=== PATIENT | female | born 1955 | race Caucasian/White ===

== ENCOUNTER 2024-03-06 12:53 | Emergency (ER) | payer OTHER, MEDICARE ==
[~2024-03-06 12:53] MED LIST: Iopamidol 370 76% 100 ML VIAL ONE
[2024-03-06 13:55] LABS: #Basophils 0.1 thou/uL (0.0-0.2); #Lymphocytes 1.7 thou/uL (1.20-3.40); #Monocytes 0.5 thou/uL (0.11-0.59); #Neutrophils 4.5 thou/uL (1.40-6.50); %Basophils 0.8 % (0.0-1.0); %Eosinophils 0.1 % (0.0-10.0); %Lymphocytes 24.8 % (21.0-51.0); %Monocytes 7.4 % (0.0-10.0); Hematocrit 30.4 % (36.0-47.0); Hemoglobin 8.7 g/dL (12.0-16.0); Mean Corpuscular HGB CONC 28.5 g/dL (32.0-36.0); Mean Corpuscular Hemoglobin 22.4 pg (27.0-31.0); Mean Corpuscular Volume 78.5 fl (78.0-98.0); Mean Platelet Volume 9.5 fL (7.4-10.4); Platelet Count 119 10x3/uL (130-400); RBC Distribution Width 20.4 % (11.5-14.5); Red Blood Cell (RBC) Count 3.87 mill/uL (4.20-5.40); White Blood Cell (WBC) Count 6.7 10x3/uL (4.8-10.8)
[2024-03-06 13:56] LABS: Anisocytosis SLIGHT = 6-15 cells (100X) (0-5/hpf); Hypochromia SLIGHT = 6-15 cells (100X) (0-5/hpf)
[2024-03-06 13:57] LABS: Anion Gap 15 mmol/L (10-20); BUN (Urea Nitrogen) 27 mg/dL (9.8-20.1); Calc. Creatinine Clearance 0 mL/min (70-130); Calcium 8.3 mg/dL (7.8-10.44); Carbon Dioxide 18 mmol/L (23-31); Chloride 107 mmol/L (98-107); Estimated GFR 36; Glucose 134 mg/dL (80-115); Platelet Adequacy Comment Appears Decreased; Potassium 4.3 mmol/L (3.5-5.1); Sodium 136 mmol/L (136-145)
[2024-03-06] MEDS ORDERED: Piperacillin/Tazobactam 3.375 GM VIAL ONE (14:07)
[2024-03-06] MEDS ORDERED: Vancomycin HCl 500 MG VIAL ONE (15:28)
[2024-03-06 15:55] LABS: Bacteria/HPF 1+ HPF (None Seen); Bilirubin Negative (Negative); Blood, Urine Negative (Negative); CAUTI Indications for Culture Pelvic or flank pain; Clarity Hazy (Clear); Glucose, Urine (Dipstick) Negative (Negative); Ketone, Urine Negative (Negative); Leukocyte Negative (Negative); Nitrite Positive (Negative); Protein, Urine (Dipstick) Negative (Neg-Trace); RBC/HPF None Seen HPF (0-3); Urobilinogen 0.2 mg/dL (Less than 2); WBC/HPF None Seen HPF (0-3); pH, Urine 8.5 (5.0-9.0)
[2024-03-06 15:56] LABS: Urine Culture Reflex No No
[2024-03-06] MEDS ORDERED: Albumin 25% 100 ML ONE (16:44)
== END 2024-03-06 18:56 | disposition short-term general hospital (02) ==
LOC: MADERS 12:53
DX: T81.41XA Infection following a procedure, superficial incisional surgical site, initial encounter (principal); S37.009A Unspecified injury of unspecified kidney, initial encounter; E78.5 Hyperlipidemia, unspecified; I10 Essential (primary) hypertension; E11.9 Type 2 diabetes mellitus without complications; Z79.899 Other long term (current) drug therapy
CPT/HCPCS: 36415; 71045; 72193; 80048; 81001; 83605; 84484; 85025; 86140; 87070; 87077; 87186; 87205; 93005; 96365; 96367; J2543; J3370; P9047; Q9967

== ENCOUNTER 2024-03-17 19:33 | Inpatient (IN) | payer OTHER, MEDICAID ==
[2024-03-17] MEDS ORDERED: Ibuprofen 400 MG TAB PO PRN (20:12)
[2024-03-17] MEDS ORDERED: Ipratropium/Albuterol 3 ML NEB NEB PRN (20:12)
[2024-03-17] MEDS ORDERED: Acetaminophen 325 MG TAB PO PRN (20:12)
[2024-03-17] MEDS ORDERED: Cefepime 2 GM VIAL IVPB SCH (21:00)
[2024-03-17] MEDS: Cefepime 2 GM in Sodium Chloride 0.9% 100 ML IVPB SCH (21:21)
[2024-03-17] MEDS: Rosuvastatin 10 MG TAB PO SCH (21:22)
[2024-03-17] MEDS: Pantoprazole DR 40 MG TAB PO SCH (21:22)
[2024-03-17] MEDS: Hydroxychloroquine Sulfate 200 MG TAB PO SCH (21:22)
[2024-03-17] MEDS: Ranolazine ER 500 MG TAB PO SCH (21:22)
[2024-03-18] MEDS: traMADol HCl 50 MG TAB PO PRN (05:51)
[2024-03-18] MEDS: Acetaminophen 325 MG TAB PO PRN (05:52)
[2024-03-18] MEDS: Aspirin Chewable 81 MG TAB PO SCH (08:52)
[2024-03-18] MEDS: Saccharomyces boulardii 250 MG CAP PO SCH (08:52)
[2024-03-18] MEDS: Ezetimibe 10 MG TAB PO SCH (08:52)
[2024-03-18] MEDS: Empagliflozin 10 MG TAB PO SCH (08:53)
[2024-03-18] MEDS: DULoxetine 20 MG CAP PO SCH (08:53)
[2024-03-18] MEDS: Prasugrel 10 MG TAB PO SCH (08:53)
[2024-03-18] MEDS: Furosemide 20 MG TAB PO SCH (08:53)
[2024-03-18] MEDS: Spironolactone 25 MG TAB PO SCH (08:54)
[2024-03-18] MEDS: Cyclobenzaprine 10 MG TAB PO PRN (21:18)
[2024-03-19 06:39] LABS: Hematocrit 33.2 % (36.0-47.0); Hemoglobin 9.6 g/dL (12.0-16.0); Mean Corpuscular HGB CONC 29.1 g/dL (32.0-36.0); Mean Corpuscular Hemoglobin 24.4 pg (27.0-31.0); Mean Corpuscular Volume 83.8 fl (78.0-98.0); Mean Platelet Volume 9.3 fL (7.4-10.4); Platelet Count 109 10x3/uL (130-400); RBC Distribution Width 19.7 % (11.5-14.5); Red Blood Cell (RBC) Count 3.96 mill/uL (4.20-5.40)
[2024-03-19 06:42] LABS: Anion Gap 13 mmol/L (10-20); BUN (Urea Nitrogen) 15 mg/dL (9.8-20.1); Calc. Creatinine Clearance 70 mL/min (70-130); Calcium 7.7 mg/dL (7.8-10.44); Carbon Dioxide 22 mmol/L (23-31); Chloride 102 mmol/L (98-107); Estimated GFR 79; Glucose 81 mg/dL (80-115); Potassium 3.5 mmol/L (3.5-5.1); Sodium 133 mmol/L (136-145)
[2024-03-19 06:47] LABS: Manual Diff?? YES
[2024-03-19 06:48] LABS: Anisocytosis SLIGHT = 6-15 cells (100X) (0-5/hpf); Band 10 % (5-11); Lymphocytes 52 % (21-51); MDiff Complete? YES; Monocytes 8 % (0-10); Neutrophil 30 % (42-75); Platelet Adequacy Comment Appears Adequate
[2024-03-20] MEDS: Ibuprofen 400 MG TAB PO PRN (00:27)
[2024-03-21] MEDS: Loperamide HCl 2 MG CAP PO PRN (11:45)
[2024-03-21] MEDS: Betamethasone 0.1% Cream 15 GM TUBE TOP SCH (21:13)
[2024-03-21] MEDS: DULoxetine 20 MG CAP PO SCH (21:13)
[2024-03-23] MEDS: Betamethasone 0.1% Cream 15 GM TUBE TOP PRN (08:35)
[2024-03-23] MEDS: Ondansetron ODT 4 MG TAB PO PRN (11:28)
[2024-03-24] MEDS: Ferrous Gluconate 324 MG TAB PO SCH (08:04)
[2024-03-26 06:00] LABS: ALT (SGPT) 16 U/L (8-55); AST (SGOT) 27 U/L (5-34); Albumin 2.7 g/dL (3.4-4.8); Alkaline Phosphatase 93 U/L (40-110); Anion Gap 12 mmol/L (10-20); BUN (Urea Nitrogen) 13 mg/dL (9.8-20.1); Bilirubin, Total 0.7 mg/dL (0.2-1.2); Calc. Creatinine Clearance 70 mL/min (70-130); Calcium 7.9 mg/dL (7.8-10.44); Carbon Dioxide 23 mmol/L (23-31); Chloride 106 mmol/L (98-107); Estimated GFR 78; Globulin 2.4 g/dL (2.4-3.5); Glucose 114 mg/dL (80-115); Potassium 3.2 mmol/L (3.5-5.1); Protein, Total 5.1 g/dL (5.8-8.1); Sodium 138 mmol/L (136-145)
[2024-03-26 06:02] LABS: Eosinophils 1 % (0-10); Hematocrit 35.5 % (36.0-47.0); Lymphocytes 58 % (21-51); MDiff Complete? YES; Mean Corpuscular HGB CONC 28.1 g/dL (32.0-36.0); Mean Corpuscular Hemoglobin 24.2 pg (27.0-31.0); Mean Corpuscular Volume 86.4 fl (78.0-98.0); Mean Platelet Volume 7.5 fL (7.4-10.4); Monocytes 10 % (0-10); Neutrophil 31 % (42-75); Platelet Adequacy Comment Appears Decreased; Platelet Count 97 10x3/uL (130-400); RBC Distribution Width 21.3 % (11.5-14.5); Red Blood Cell (RBC) Count 4.11 mill/uL (4.20-5.40); White Blood Cell (WBC) Count 6.2 10x3/uL (4.8-10.8)
[2024-03-26] MEDS: Potassium Chloride 20 MEQ TAB PO SCH (13:39)
[2024-03-27 06:27] LABS: Anion Gap 13 mmol/L (10-20); BUN (Urea Nitrogen) 12 mg/dL (9.8-20.1); Calc. Creatinine Clearance 74 mL/min (70-130); Carbon Dioxide 23 mmol/L (23-31); Chloride 107 mmol/L (98-107); Estimated GFR 84; Glucose 78 mg/dL (80-115); Potassium 3.5 mmol/L (3.5-5.1); Sodium 139 mmol/L (136-145)
[2024-03-27 06:54] LABS: Platelet Count 120 10x3/uL (130-400)
[2024-03-27] MEDS: Potassium Chloride 20 MEQ TAB PO SCH (09:07)
[2024-04-02 06:00] LABS: Band 1 % (5-11); Eosinophils 1 % (0-10); Hematocrit 35.5 % (36.0-47.0); Hemoglobin 10.3 g/dL (12.0-16.0); Lymphocytes 57 % (21-51); MDiff Complete? YES; Mean Corpuscular Volume 86.1 fl (78.0-98.0); Mean Platelet Volume 8.6 fL (7.4-10.4); Monocytes 12 % (0-10); Neutrophil 29 % (42-75); Platelet Count 109 10x3/uL (130-400); RBC Distribution Width 20.5 % (11.5-14.5); Red Blood Cell (RBC) Count 4.12 mill/uL (4.20-5.40); White Blood Cell (WBC) Count 4.8 10x3/uL (4.8-10.8)
[2024-04-02 06:06] LABS: ALT (SGPT) 12 U/L (8-55); AST (SGOT) 26 U/L (5-34); Albumin 2.6 g/dL (3.4-4.8); Alkaline Phosphatase 93 U/L (40-110); Anion Gap 11 mmol/L (10-20); BUN (Urea Nitrogen) 12 mg/dL (9.8-20.1); Bilirubin, Total 0.7 mg/dL (0.2-1.2); Calc. Creatinine Clearance 63 mL/min (70-130); Calcium 8.1 mg/dL (7.8-10.44); Carbon Dioxide 26 mmol/L (23-31); Chloride 107 mmol/L (98-107); Estimated GFR 73; Globulin 2.5 g/dL (2.4-3.5); Glucose 74 mg/dL (80-115); Potassium 3.8 mmol/L (3.5-5.1); Protein, Total 5.1 g/dL (5.8-8.1); Sodium 140 mmol/L (136-145)
[2024-04-05] MEDS: Cefepime 2 GM in Sodium Chloride 0.9% 100 ML IVPB SCH (09:45)
[2024-04-05] MEDS ORDERED: traMADol HCl 50 MG TAB PO PRN (11:33)
[2024-04-05] MEDS: Hydroxychloroquine Sulfate 200 MG TAB PO SCH (20:06)
[2024-04-09 05:18] LABS: Anisocytosis SLIGHT = 6-15 cells (100X) (0-5/hpf); Band 1 % (5-11); Eosinophils 3 % (0-10); Hematocrit 38.4 % (36.0-47.0); Hemoglobin 11.5 g/dL (12.0-16.0); Lymphocytes 58 % (21-51); MDiff Complete? YES; Mean Corpuscular HGB CONC 29.9 g/dL (32.0-36.0); Mean Corpuscular Hemoglobin 25.5 pg (27.0-31.0); Mean Corpuscular Volume 85.4 fl (78.0-98.0); Mean Platelet Volume 8.6 fL (7.4-10.4); Monocytes 8 % (0-10); Neutrophil 30 % (42-75); Platelet Adequacy Comment Appears Decreased; Platelet Count 104 10x3/uL (130-400); RBC Distribution Width 20.2 % (11.5-14.5); White Blood Cell (WBC) Count 6.2 10x3/uL (4.8-10.8)
[2024-04-09 05:29] LABS: ALT (SGPT) 14 U/L (8-55); AST (SGOT) 27 U/L (5-34); Alkaline Phosphatase 99 U/L (40-110); Anion Gap 13 mmol/L (10-20); BUN (Urea Nitrogen) 11 mg/dL (9.8-20.1); Bilirubin, Total 0.7 mg/dL (0.2-1.2); Calc. Creatinine Clearance 55 mL/min (70-130); Calcium 8.5 mg/dL (7.8-10.44); Carbon Dioxide 22 mmol/L (23-31); Chloride 109 mmol/L (98-107); Estimated GFR 66; Globulin 2.9 g/dL (2.4-3.5); Glucose 85 mg/dL (80-115); Potassium 3.9 mmol/L (3.5-5.1); Protein, Total 5.9 g/dL (5.8-8.1); Sodium 140 mmol/L (136-145)
[2024-04-12] MEDS: Proctozone-HC 30 GM TUBE TOP SCH (08:31)
[2024-04-16 05:08] LABS: Band 1 % (5-11); Eosinophils 2 % (0-10); Hematocrit 37.8 % (36.0-47.0); Hemoglobin 11.3 g/dL (12.0-16.0); Lymphocytes 56 % (21-51); MDiff Complete? YES; Mean Corpuscular Hemoglobin 25.9 pg (27.0-31.0); Mean Corpuscular Volume 86.5 fl (78.0-98.0); Mean Platelet Volume 10.2 fL (7.4-10.4); Monocytes 8 % (0-10); Neutrophil 33 % (42-75); Platelet Count 96 10x3/uL (130-400); RBC Distribution Width 19.6 % (11.5-14.5); Red Blood Cell (RBC) Count 4.38 mill/uL (4.20-5.40); White Blood Cell (WBC) Count 5.7 10x3/uL (4.8-10.8)
[2024-04-16 05:26] LABS: ALT (SGPT) 12 U/L (8-55); AST (SGOT) 28 U/L (5-34); Alkaline Phosphatase 81 U/L (40-110); Anion Gap 14 mmol/L (10-20); BUN (Urea Nitrogen) 15 mg/dL (9.8-20.1); Bilirubin, Total 0.6 mg/dL (0.2-1.2); Calc. Creatinine Clearance 66 mL/min (70-130); Calcium 8.5 mg/dL (7.8-10.44); Carbon Dioxide 20 mmol/L (23-31); Chloride 107 mmol/L (98-107); Estimated GFR 80; Globulin 2.7 g/dL (2.4-3.5); Glucose 79 mg/dL (80-115); Potassium 4.1 mmol/L (3.5-5.1); Protein, Total 5.7 g/dL (5.8-8.1); Sodium 137 mmol/L (136-145)
[2024-04-16 14:35] VITALS: BMI 22.8
[2024-04-16] MEDS: traMADol HCl 50 MG TAB PO PRN (17:14)
[2024-04-17] MEDS: Hydroxychloroquine Sulfate 200 MG TAB PO SCH ×2 (10:46→20:16)
[2024-04-17] MEDS: Leflunomide 10 mg Tablet PO SCH (10:48)
[2024-04-17] MEDS ORDERED: traMADol HCl 50 MG TAB PO PRN (17:17)
[2024-04-17] MEDS: Simethicone Chewable 80 MG TAB PO PRN (17:22)
[2024-04-17] MEDS ORDERED: Hydroxychloroquine Sulfate 200 MG TAB PO SCH (21:00)
[2024-04-18] MEDS: Leflunomide 10 mg Tablet PO SCH (08:18)
[2024-04-18] MEDS ORDERED: Leflunomide 10 mg Tablet PO SCH (10:10)
[2024-04-19 05:19] VITALS: BMI 22.6
[2024-04-21 07:22] VITALS: BP 117/76; TEMP 97.9
== END 2024-04-21 09:38 | disposition home or self-care (01) | DRG 949 ==
LOC: MADMS 19:33
PROVIDERS: ADMIT Family Medicine; ATTEND Family Medicine
DX: T84.51XD Infection and inflammatory reaction due to internal right hip prosthesis, subsequent encounter (principal); I50.43 Acute on chronic combined systolic (congestive) and diastolic (congestive) heart failure; J96.01 Acute respiratory failure with hypoxia; D62 Acute posthemorrhagic anemia; E87.1 Hypo-osmolality and hyponatremia; D69.6 Thrombocytopenia, unspecified; Z66 Do not resuscitate; I11.0 Hypertensive heart disease with heart failure; J44.9 Chronic obstructive pulmonary disease, unspecified; I25.10 Atherosclerotic heart disease of native coronary artery without angina pectoris; D50.9 Iron deficiency anemia, unspecified; R53.81 Other malaise; K21.9 Gastro-esophageal reflux disease without esophagitis; M62.838 Other muscle spasm; R19.7 Diarrhea, unspecified; M06.9 Rheumatoid arthritis, unspecified; B96.5 Pseudomonas (aeruginosa) (mallei) (pseudomallei) as the cause of diseases classified elsewhere; I25.5 Ischemic cardiomyopathy; I73.9 Peripheral vascular disease, unspecified; Z96.641 Presence of right artificial hip joint; Z88.5 Allergy status to narcotic agent; Z79.899 Other long term (current) drug therapy; Z79.82 Long term (current) use of aspirin; Z95.1 Presence of aortocoronary bypass graft; Z87.891 Personal history of nicotine dependence; Z98.890 Other specified postprocedural states; Z90.49 Acquired absence of other specified parts of digestive tract; Z90.710 Acquired absence of both cervix and uterus; Z99.81 Dependence on supplemental oxygen; Z91.81 History of falling
CPT/HCPCS: 80048; 80053; 85025; 85049; 86140; J0692; J3490; Q0162

== ENCOUNTER 2024-05-13 15:10 | Emergency (ER) | payer OTHER, MEDICAID ==
[2024-05-13 17:09] LABS: #Basophils 0.1 thou/uL (0.0-0.2); #Monocytes 0.5 thou/uL (0.11-0.59); #Neutrophils 4.2 thou/uL (1.40-6.50); %Basophils 1.7 % (0.0-1.0); %Eosinophils 0.3 % (0.0-10.0); %Lymphocytes 38.3 % (21.0-51.0); %Neutrophils 53.7 % (42.0-75.0); Hematocrit 36.5 % (36.0-47.0); Hemoglobin 10.7 g/dL (12.0-16.0); Mean Corpuscular HGB CONC 29.3 g/dL (32.0-36.0); Mean Corpuscular Hemoglobin 25.6 pg (27.0-31.0); Mean Corpuscular Volume 87.5 fl (78.0-98.0); Mean Platelet Volume 8.5 fL (7.4-10.4); Platelet Count 199 10x3/uL (130-400); RBC Distribution Width 17.1 % (11.5-14.5); Red Blood Cell (RBC) Count 4.17 mill/uL (4.20-5.40); White Blood Cell (WBC) Count 7.7 10x3/uL (4.8-10.8)
[2024-05-13 17:19] LABS: ALT (SGPT) Less than 7 U/L (8-55); AST (SGOT) 10 U/L (5-34); Albumin 2.5 g/dL (3.4-4.8); Alkaline Phosphatase 87 U/L (40-110); Anion Gap 14 mmol/L (10-20); BUN (Urea Nitrogen) 14 mg/dL (9.8-20.1); Bilirubin, Total 0.5 mg/dL (0.2-1.2); Calc. Creatinine Clearance 0 mL/min (70-130); Carbon Dioxide 24 mmol/L (23-31); Chloride 106 mmol/L (98-107); Estimated GFR 64; Globulin 3.8 g/dL (2.4-3.5); Glucose 75 mg/dL (80-115); Protein, Total 6.3 g/dL (5.8-8.1); Sodium 139 mmol/L (136-145)
[2024-05-13] MEDS ORDERED: Sodium Chloride 0.9% 100 ML ONE (18:07)
[2024-05-13] MEDS ORDERED: Cefepime 2 GM VIAL ONE (18:07)
== END 2024-05-13 20:11 | disposition home or self-care (01) ==
LOC: MADERS 15:10
DX: T81.49XA Infection following a procedure, other surgical site, initial encounter (principal); E11.9 Type 2 diabetes mellitus without complications; I11.0 Hypertensive heart disease with heart failure; I50.9 Heart failure, unspecified
CPT/HCPCS: 36415; 72192; 80053; 83605; 85025; 96365; J0692; J3490

== ENCOUNTER 2024-05-25 19:04 | Inpatient (IN) | payer OTHER, MEDICAID ==
[2024-05-25] MEDS: Hydroxychloroquine Sulfate 200 MG TAB PO SCH (21:44)
[2024-05-25] MEDS: DULoxetine 20 MG CAP PO SCH (21:45)
[2024-05-25] MEDS: Pantoprazole DR 40 MG TAB PO SCH (21:45)
[2024-05-25] MEDS: Rosuvastatin 10 MG TAB PO SCH (21:45)
[2024-05-25 22:04] VITALS: BMI 23.2
[2024-05-26] MEDS: DULoxetine 20 MG CAP PO SCH (08:20)
[2024-05-26] MEDS: Prasugrel 10 MG TAB PO SCH (08:20)
[2024-05-26] MEDS: Enoxaparin 40 MG (0.4 mL) SYRINGE SC SCH (08:20)
[2024-05-26] MEDS: Leflunomide 10 mg Tablet PO SCH (08:21)
[2024-05-26] MEDS: Hydroxychloroquine Sulfate 200 MG TAB PO SCH (08:21)
[2024-05-26] MEDS: Magnesium Oxide 400 MG TAB PO SCH (08:21)
[2024-05-26] MEDS: Cyclobenzaprine 10 MG TAB PO PRN (08:21)
[2024-05-26] MEDS: Ranolazine ER 500 MG TAB PO SCH (08:21)
[2024-05-26] MEDS: Empagliflozin 10 MG TAB PO SCH (08:21)
[2024-05-26] MEDS: Bisoprolol Fumarate 5 MG TAB PO SCH (08:21)
[2024-05-26] MEDS: Ezetimibe 10 MG TAB PO SCH (08:21)
[2024-05-26] MEDS ORDERED: Lantiseptic Ointment 130 GM JAR TOP PRN (14:42)
[2024-05-26] MEDS: Non-Formulary Item 1 EACH (Ibandronate Sodium [Ibandronate Sodium] 150 MG Tablet) PO SCH (17:10)
[2024-05-26] MEDS: Meloxicam 7.5 MG TAB PO SCH (19:08)
[2024-05-26] MEDS: Lidocaine 4% Patch TD SCH (19:59)
[2024-05-26] MEDS: Lantiseptic Ointment 130 GM JAR TOP SCH (20:00)
[2024-05-26] MEDS: Pantoprazole DR 40 MG TAB PO SCH (20:00)
[2024-05-26] MEDS: Rosuvastatin 10 MG TAB PO SCH (20:00)
[2024-05-27] MEDS: Meloxicam 7.5 MG TAB PO SCH (08:15)
[2024-05-27] MEDS: Acetaminophen 325 MG TAB PO PRN (08:16)
[2024-05-27] MEDS: Metamucil PACK PO SCH (08:16)
[2024-05-27] MEDS: Famotidine 20 MG TAB PO SCH (08:17)
[2024-05-27] MEDS: Furosemide 20 MG TAB PO SCH (08:18)
[2024-05-27] MEDS: Transdermal Patch Removal TOP SCH (08:19)
[2024-05-27] MEDS ORDERED: Lidocaine 4% Patch TD SCH (21:00)
[2024-05-27] MEDS: Cyclobenzaprine 10 MG TAB PO PRN (21:20)
[2024-05-31] MEDS: Ipratropium/Albuterol 3 ML NEB NEB PRN (13:48)
[2024-06-01 07:08] LABS: Anion Gap 14 mmol/L (10-20); BUN (Urea Nitrogen) 17 mg/dL (9.8-20.1); Calc. Creatinine Clearance 63 mL/min (70-130); Calcium 8.6 mg/dL (7.8-10.44); Carbon Dioxide 17 mmol/L (23-31); Chloride 110 mmol/L (98-107); Estimated GFR 80; Glucose 89 mg/dL (83-110); Potassium 4.7 mmol/L (3.5-5.1); Sodium 136 mmol/L (136-145)
[2024-06-01] MEDS: Ranolazine ER 500 MG TAB PO SCH (21:31)
[2024-06-01] MEDS: Loperamide HCl 2 MG CAP PO PRN (23:32)
[2024-06-04] MEDS: Bisoprolol Fumarate 5 MG TAB PO SCH (09:50)
[2024-06-08 11:12] VITALS: BMI 23.3
[2024-06-11 07:12] VITALS: BP 112/61; TEMP 97.6
== END 2024-06-11 09:48 | disposition home or self-care (01) | DRG 560 ==
LOC: MADMS 20:29
PROVIDERS: ADMIT Family Medicine; ATTEND Family Medicine
DX: S32.9XXD Fracture of unspecified parts of lumbosacral spine and pelvis, subsequent encounter for fracture with routine healing (principal); I50.42 Chronic combined systolic (congestive) and diastolic (congestive) heart failure; R53.81 Other malaise; S32.019D Unspecified fracture of first lumbar vertebra, subsequent encounter for fracture with routine healing; S22.089G Unspecified fracture of T11-T12 vertebra, subsequent encounter for fracture with delayed healing; I11.0 Hypertensive heart disease with heart failure; I25.10 Atherosclerotic heart disease of native coronary artery without angina pectoris; S32.10XD Unspecified fracture of sacrum, subsequent encounter for fracture with routine healing; M06.9 Rheumatoid arthritis, unspecified; D50.9 Iron deficiency anemia, unspecified; J44.9 Chronic obstructive pulmonary disease, unspecified; K21.9 Gastro-esophageal reflux disease without esophagitis; I73.9 Peripheral vascular disease, unspecified; I25.5 Ischemic cardiomyopathy; R29.6 Repeated falls; G62.9 Polyneuropathy, unspecified; D63.8 Anemia in other chronic diseases classified elsewhere; Z96.641 Presence of right artificial hip joint; I25.2 Old myocardial infarction; Z88.5 Allergy status to narcotic agent; Z79.899 Other long term (current) drug therapy; Z95.1 Presence of aortocoronary bypass graft; Z95.810 Presence of automatic (implantable) cardiac defibrillator; Z90.712 Acquired absence of cervix with remaining uterus; Z98.890 Other specified postprocedural states; Z87.891 Personal history of nicotine dependence
CPT/HCPCS: 36415; 36416; 80048; 94640; J1650; J7620

== ENCOUNTER 2024-08-14 18:28 | Inpatient (IN) | payer OTHER, MEDICAID ==
[2024-08-14 19:38] VITALS: BMI 23.3
[2024-08-14] MEDS ORDERED: Ipratropium/Albuterol 3 ML NEB NEB PRN (20:25)
[2024-08-14] MEDS: Lantiseptic Ointment 130 GM JAR TOP SCH (20:53)
[2024-08-14] MEDS: DULoxetine 20 MG CAP PO SCH (20:54)
[2024-08-14] MEDS: Pantoprazole DR 40 MG TAB PO SCH (20:54)
[2024-08-14] MEDS: Furosemide 20 MG TAB PO SCH (20:54)
[2024-08-14] MEDS: Hydroxychloroquine Sulfate 200 MG TAB PO SCH (20:54)
[2024-08-14] MEDS: Rosuvastatin 10 MG TAB PO SCH (20:54)
[2024-08-14] MEDS: Ranolazine ER 500 MG TAB PO SCH (20:54)
[2024-08-14] MEDS: Cyclobenzaprine 10 MG TAB PO PRN (21:03)
[2024-08-15] MEDS: Furosemide 20 MG TAB PO SCH ×2 (05:44→16:55)
[2024-08-15] MEDS: Non-Formulary Item 1 EACH (Ibandronate Sodium [Ibandronate Sodium] 150 MG Tablet) PO SCH (06:49)
[2024-08-15] MEDS: Leflunomide 10 mg Tablet PO SCH (08:39)
[2024-08-15] MEDS: Prasugrel 10 MG TAB PO SCH (08:39)
[2024-08-15] MEDS: Ezetimibe 10 MG TAB PO SCH (08:39)
[2024-08-15] MEDS: Aspirin 81 mg Enteric Coated Tablet PO SCH (08:39)
[2024-08-15] MEDS: Magnesium Oxide 400 MG TAB PO SCH (08:39)
[2024-08-15] MEDS: Empagliflozin 10 MG TAB PO SCH (08:39)
[2024-08-15] MEDS: Enoxaparin 40 MG (0.4 mL) SYRINGE SC SCH (08:40)
[2024-08-16] MEDS: Furosemide 20 MG TAB PO SCH (09:16)
[2024-08-16] MEDS: Enoxaparin 30 MG (0.3 mL) SYRINGE SC SCH (09:17)
[2024-08-16] MEDS ORDERED: Furosemide 20 MG TAB PO SCH (15:30)
[2024-08-16] MEDS: Acetaminophen 325 MG TAB PO PRN (19:12)
[2024-08-17 13:15] VITALS: BMI 23.3
[2024-08-17] MEDS: Saccharomyces boulardii 250 MG CAP PO SCH (20:07)
[2024-08-20 06:28] LABS: #Basophils 0.1 thou/uL (0.0-0.2); #Eosinophils 0.1 thou/uL (0.0-0.7); #Lymphocytes 1.9 thou/uL (1.20-3.40); #Monocytes 0.4 thou/uL (0.11-0.59); #Neutrophils 1.8 thou/uL (1.40-6.50); %Basophils 2.1 % (0.0-1.0); %Eosinophils 2.7 % (0.0-10.0); %Lymphocytes 43.2 % (21.0-51.0); %Monocytes 9.2 % (0.0-10.0); %Neutrophils 42.9 % (42.0-75.0); Hematocrit 34.1 % (36.0-47.0); Mean Corpuscular HGB CONC 29.4 g/dL (32.0-36.0); Mean Corpuscular Hemoglobin 23.5 pg (27.0-31.0); Mean Corpuscular Volume 79.9 fl (78.0-98.0); Mean Platelet Volume 7.2 fL (7.4-10.4); Platelet Count 176 10x3/uL (130-400); RBC Distribution Width 17.8 % (11.5-14.5); Red Blood Cell (RBC) Count 4.27 mill/uL (4.20-5.40); White Blood Cell (WBC) Count 4.3 10x3/uL (4.8-10.8)
[2024-08-20 06:37] LABS: ALT (SGPT) 9 U/L (8-55); AST (SGOT) 11 U/L (5-34); Albumin 2.5 g/dL (3.4-4.8); Alkaline Phosphatase 106 U/L (40-110); Anion Gap 13 mmol/L (10-20); BUN (Urea Nitrogen) 15 mg/dL (9.8-20.1); Bilirubin, Total 0.4 mg/dL (0.2-1.2); Calc. Creatinine Clearance 63 mL/min (70-130); Calcium 8.6 mg/dL (7.8-10.44); Carbon Dioxide 22 mmol/L (23-31); Chloride 109 mmol/L (98-107); Estimated GFR 79; Glucose 81 mg/dL (83-110); Lipase 15 U/L (8-78); Potassium 4.1 mmol/L (3.5-5.1); Protein, Total 6.5 g/dL (5.8-8.1); Sodium 140 mmol/L (136-145)
[2024-08-20 07:49] LABS: Bilirubin Negative (Negative); Blood, Urine Negative (Negative); Clarity Slightly Cloudy (Clear); Glucose, Urine (Dipstick) 250 mg/dL (Negative); Ketone, Urine Negative (Negative); Leukocyte Trace (Negative); Nitrite Negative (Negative); Protein, Urine (Dipstick) Negative (Neg-Trace); Specific Gravity, Urine 1.015 (1.005-1.030); Urobilinogen 0.2 mg/dL (Less than 2)
[2024-08-20 08:00] LABS: CAUTI Indications for Culture Pelvic or flank pain; RBC/HPF 0-3 HPF (0-3)
[2024-08-20 08:01] LABS: Bacteria/HPF Rare-Few HPF (None Seen); Yeast-Budding 2+ HPF (None Seen)
[2024-08-20 08:03] LABS: Urine Culture Reflex No No
[2024-08-20] MEDS ORDERED: Iopamidol 370 76% 100 ML VIAL ONE (09:00)
[2024-08-20] MEDS: Enoxaparin 40 MG (0.4 mL) SYRINGE SC SCH (09:53)
[2024-08-21] MEDS ORDERED: Nitroglycerin 0.4 MG TAB (25 Tab Bottle) SL PRN (21:13)
[2024-08-21] MEDS: Nitroglycerin 0.4 MG TAB (25 Tab Bottle) SL SCH (21:15)
[2024-08-21 21:50] LABS: Troponin I 0.025 ng/mL (< 0.028)
[2024-08-23] MEDS: Ranolazine ER 500 MG TAB PO SCH ×2 (10:37→21:18)
[2024-08-24] MEDS: Acetaminophen 500 MG TAB PO PRN (17:10)
[2024-08-24] MEDS: Diclofenac 1% 100 GM Topical GEL TP PRN (17:12)
[2024-08-25] MEDS: Hydroxychloroquine Sulfate 200 MG TAB PO SCH (21:43)
[2024-08-26] MEDS: Hydroxychloroquine Sulfate 200 MG TAB PO SCH (08:34)
[2024-08-27 07:48] VITALS: BP 117/67; TEMP 97.4
[2024-08-27] MEDS: Loperamide HCl 2 MG CAP PO PRN (08:44)
== END 2024-08-27 11:55 | disposition home or self-care (01) | DRG 948 ==
LOC: MADMS 18:28
PROVIDERS: ADMIT Family Medicine; ATTEND Family Medicine
DX: R53.1 Weakness (principal); I50.22 Chronic systolic (congestive) heart failure; I25.10 Atherosclerotic heart disease of native coronary artery without angina pectoris; Z95.1 Presence of aortocoronary bypass graft; I73.9 Peripheral vascular disease, unspecified; M06.9 Rheumatoid arthritis, unspecified; Z96.641 Presence of right artificial hip joint; I25.5 Ischemic cardiomyopathy; R53.81 Other malaise; Z90.710 Acquired absence of both cervix and uterus; Z90.49 Acquired absence of other specified parts of digestive tract; Z87.891 Personal history of nicotine dependence; E86.1 Hypovolemia; I50.9 Heart failure, unspecified; I11.0 Hypertensive heart disease with heart failure
CPT/HCPCS: 36415; 74160; 80053; 81001; 82550; 83690; 84484; 85025; J1650; Q9967